=== PATIENT | male | born 1955 | race Caucasian/White ===

== ENCOUNTER → 2022-07-28 12:39 | Outpatient (BNVA) | payer MEDICARE, SELFPAY | PROVIDERS: Visit Provider Nurse Practitioner Family | DX: S61.019A Laceration without foreign body of unspecified thumb without damage to nail, initial encounter (principal); S69.90XA Unspecified injury of unspecified wrist, hand and finger(s), initial encounter; X58.XXXA Exposure to other specified factors, initial encounter | CPT/HCPCS: 73130 ==